=== PATIENT | female | born 1965 | race Caucasian/White ===

== ENCOUNTER 2016-06-17 14:15 | Emergency (ER) | payer MEDICAID, OTHER ==
[~2016-06-17] VITALS: Ht 167.6 cm; Wt 100.0 kg
[~2016-06-17 14:15] MED LIST: AMOX500T PO; BENZ1TAB PO; OLAN15 PO; ZYPR10TA9 PO
--- NOTE | 2016-06-17 14:37 | PD ---
HPI Chief Complaint: psychiatric symptoms Time Seen by Provider: 14:33 Travel History International Travel<30 days: No Contact w/Intl Traveler<30days: No History of Present Illness HPI 51-year-old female presents to the ED under Michele act from [facility] for psychiatric evaluation. Per the officer accompanying the patient she was involved in a dispute with a export administrator who was working at the house shared by the patient and her elderly mother. Apparently the patient continued this argument with her mother. The export administrator reports hearing a smacking sounding and entering the room to see the elderly lady crying. This prompted him to call the police. Per the patients mother she has a diagnosis of schizoaffective disorder, untreated for at least a year. On presentation the patient denies SI or HI. She declines to provide any information regarding the events that preceded her arrival to the hospital today. She denies somatic complaints on presentation. Endorses distant history of depression, denies the need for medications. 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) Allergies-Medications (Allergen,Severity, Reaction): Coded Allergies: Buspar (Verified Allergy, Severe, 04/19/14) Ultram (Verified Allergy, Unknown, 04/19/14) Haldol (Unverified Adverse Reaction, Intermediate, 04/19/14) Reported Meds & Prescriptions Reported Meds & Active Scripts Active Zyprexa Zydis (Olanzapine) 10 Mg Tab 10 Mg PO DAILY Olanzapine 15 Mg Tab 15 Mg PO HS Amoxicillin 500 Mg Cap 500 Mg PO Q12 Cogentin (Benztropine Mesylate) 2 Mg Tab 2 Mg PO HS Review of Systems Except as stated in HPI: all other systems reviewed are Neg Physical Exam Narrative GENERAL: Well-nourished, well-developed white female in no acute distress. PSYCHIATRIC: No delusional thought processes. No hallucinations. Defiant, combative SKIN: Warm and dry. HEAD: Normocephalic. EYES: No scleral icterus. No injection or drainage. NECK: Supple, trachea midline. No JVD or lymphadenopathy. CARDIOVASCULAR: Regular rate and rhythm without murmurs, gallops, or rubs. RESPIRATORY: Breath sounds equal bilaterally. No accessory muscle use. GASTROINTESTINAL: Abdomen soft, non-tender, nondistended. MUSCULOSKELETAL: No cyanosis, or edema. BACK: Nontender without obvious deformity. No CVA tenderness. Data Data Last Documented VS Vital Signs Date Time Temp Pulse Resp B/P Pulse Ox O2 Delivery O2 Flow Rate FiO2 06/17/16 15:19 98.1 108 16 131/75 96 Orders Complete Blood Count With Diff (06/17/16 14:31) Comprehensive Metabolic Panel (06/17/16 14:31) Thyroid Stimulating Hormone (06/17/16 14:31) Urinalysis - C+S If Indicated (06/17/16 14:31) Psych Screen (06/17/16 14:31) Drug Screen, Random Urine (06/17/16 14:31) Alcohol (Ethanol) (06/17/16 14:31) Labs Laboratory Tests Test 06/17/16 06/17/16 14:30 15:10 White Blood Count 11.9 TH/MM3 Red Blood Count 4.98 MIL/MM3 Hemoglobin 14.6 GM/DL Hematocrit 43.1 % Mean Corpuscular Volume 86.4 FL Mean Corpuscular Hemoglobin 29.4 PG Mean Corpuscular Hemoglobin 34.0 % Concent Red Cell Distribution Width 13.4 % Platelet Count 323 TH/MM3 Mean Platelet Volume 7.6 FL Neutrophils (%) (Auto) 78.3 % Lymphocytes (%) (Auto) 15.8 % Monocytes (%) (Auto) 5.5 % Eosinophils (%) (Auto) 0.1 % Basophils (%) (Auto) 0.3 % Neutrophils # (Auto) 9.3 TH/MM3 Lymphocytes # (Auto) 1.9 TH/MM3 Monocytes # (Auto) 0.7 TH/MM3 Eosinophils # (Auto) 0.0 TH/MM3 Basophils # (Auto) 0.0 TH/MM3 CBC Comment DIFF FINAL Differential Comment Sodium Level 142 MEQ/L Potassium Level 3.7 MEQ/L Chloride Level 108 MEQ/L Carbon Dioxide Level 23.4 MEQ/L Anion Gap 11 MEQ/L Blood Urea Nitrogen 14 MG/DL Creatinine 0.91 MG/DL Estimat Glomerular Filtration 65 ML/MIN Rate Random Glucose 112 MG/DL Calcium Level 9.6 MG/DL Total Bilirubin 0.2 MG/DL Aspartate Amino Transf 11 U/L (AST/SGOT) Alanine Aminotransferase 18 U/L (ALT/SGPT) Alkaline Phosphatase 71 U/L Total Protein 7.9 GM/DL Albumin 4.1 GM/DL Thyroid Stimulating Hormone 1.220 uIU/ML 3rd Gen Ethyl Alcohol Level LESS THAN 3 MG/DL Urine Color YELLOW Urine Turbidity CLEAR Urine pH 5.5 Urine Specific [place] 1.015 Urine Protein TRACE mg/dL Urine Glucose (UA) NEG mg/dL Urine Ketones NEG mg/dL Urine Occult Blood MOD Urine Nitrite NEG Urine Bilirubin NEG Urine Urobilinogen LESS THAN 2.0 MG/DL Urine Leukocyte Esterase MOD Urine RBC 2 /hpf Urine WBC 4 /hpf Urine Squamous Epithelial 4 /hpf Cells Urine Transitional Epithelial <1 /hpf Cells Urine Bacteria RARE /hpf Urine Hyaline Casts 9 /lpf Urine Mucus FEW /lpf Microscopic Urinalysis Comment CULT NOT INDICATED Urine Opiates Screen NEG Urine Barbiturates Screen NEG Urine Amphetamines Screen NEG Urine Benzodiazepines Screen NEG Urine Cocaine Screen NEG Urine Cannabinoids Screen NEG MDM Medical Decision Making Medical Screen Exam Complete: Yes Emergency Medical Condition: Yes Differential Diagnosis Adjustment disorder versus anxiety versus bipolar versus depression versus dementia versus electrolyte disorder versus malingering versus mood disorder versus ODD versus psychosis versus PTSD versus schizophrenia versus schizoaffective disorder versus substance-induced mood disorder versus other Narrative Course 51-year-old female presents to the ED under Michele act from [facility] for psychiatric evaluation. Per the officer accompanying the patient she was involved in a dispute with a export administrator who was working at the house shared by the patient and her elderly mother. Apparently the patient continued this argument with her mother. The export administrator reports hearing a smacking sounding and entering the room to see the elderly lady crying. This prompted him to call the police. Per the patients mother she has a diagnosis of schizoaffective disorder, untreated for at least a year. On presentation the patient denies SI or HI. She declines to provide any information regarding the events that preceded her arrival to the hospital today. She denies somatic complaints on presentation. Endorses distant history of depression, denies the need for medications. Vitals reviewed. Physical exam reveals a nontoxic-appearing, defiant, combative white female in no acute distress. Chest is clear to auscultation bilaterally. Abdomen soft, nontender. No CVA tenderness. No edema in the lower extremities. No concerning abnormalities of the CBC, CMP or UA. Tox screen and alcohol screening negative. The patient is medically clear for psychiatric evaluation. Please see psychiatric note for disposition. Diagnosis Primary Impression: Medical clearance for psychiatric admission Anna Ascencio Jun 17, 2016 14:37
[2016-06-17 14:55] LABS: AUTOMATED NEUTROPHIL # 9.3 TH/MM3 (1.8-7.7); BASOPHIL % 0.3 % (0.0-2.0); EOSINOPHIL % 0.1 % (0.0-4.0); HEMATOCRIT 43.1 % (35.0-46.0); HEMO FLAGS DIFF FINAL; LYMPH % 15.8 % (9.0-44.0); LYMPHOCYTE # 1.9 TH/MM3 (1.0-4.8); MEAN CELL VOLUME 86.4 FL (80.0-100.0); MEAN CORPUSCULAR HEMOGLOBIN 29.4 PG (27.0-34.0); MONO % 5.5 % (0.0-8.0); NEUT % 78.3 % (16.0-70.0); PLATELET COUNT 323 TH/MM3 (150-450); RED BLOOD COUNT 4.98 MIL/MM3 (4.00-5.30); RED CELL DISTRIBUTION WIDTH 13.4 % (11.6-17.2); WHITE BLOOD COUNT 11.9 TH/MM3 (4.0-11.0)
[2016-06-17 15:14] LABS: ALT (GPT) 18 U/L (10-53); ANION GAP 11 MEQ/L (5-15); AST (GOT) 11 U/L (15-37); BICARBONATE 23.4 MEQ/L (21.0-32.0); BLOOD UREA NITROGEN 14 MG/DL (7-18); CHLORIDE 108 MEQ/L (98-107); GLOMERULAR FILTRATION RATE 65 ML/MIN (>89); POTASSIUM 3.7 MEQ/L (3.5-5.1); SODIUM (NA) 142 MEQ/L (136-145)
[2016-06-17 15:19] VITALS: BP 131/75; PULSE 108; RESP 16; TEMP 98.1; O2SAT 96
[2016-06-17 15:23] LABS: BACTERIA, URINE RARE /hpf; BLOOD, URINE MOD (NEG); COMMENT (UR) CULT NOT INDICATED; CULTURE IF INDICATED CULT NOT INDICATED; GLUCOSE,URINE NEG (NEG); HYALINE CAST, URINE 9 /lpf (RARE); KETONE, URINE NEG (NEG); MUCUS URINE FEW /lpf (OCC); NITRITE,URINE NEG (NEG); PH, URINE 5.5 (5.0-8.5); SQUAMOUS EPITHELIAL CELL URINE 4 /hpf (0-5); TRANSITIONAL EPI CELLS, URINE <1 /hpf; URINE COLOR YELLOW (YELLW/STRAW)
[2016-06-17 15:24] LABS: ALKALINE PHOSPHATASE 71 U/L (45-117); TOTAL BILIRUBIN ADULT 0.2 MG/DL (0.2-1.0)
[2016-06-17 15:28] LABS: AMPHETAMINE, URINE NEG (NEG); BARBITURATES, URINE NEG (NEG); COCAINE, URINE NEG (NEG)
[2016-06-17 18:54] VITALS: BP 131/75; PULSE 96; RESP 18; TEMP 98.2; O2SAT 97
[2016-06-17 22:15] VITALS: BP 124/62; PULSE 82; RESP 18; O2SAT 98
[2016-06-18 02:00] VITALS: BP 111/65; PULSE 67; RESP 17; O2SAT 95
[2016-06-18 06:38] VITALS: BP 104/54; PULSE 70; RESP 19; O2SAT 96
--- NOTE | 2016-06-18 11:39 | PD ---
History of Present Illness Chief Complaint: Psychiatric Symptoms Time Seen by Provider: 11:35 Travel History International Travel<30 Days: No Contact w/Intl Traveler<30days: No Known affected area: No Legal Status Legal Status: Michele Act Michele Act Signed By: Juan Alberto Grace Michele Act Comment: 2016 @ 1336 History of Present Illness: History of Present Illness HPI 51-year-old female with history of schizoaffective disorder who presents to the ED under Michele act from [facility] for psychiatric evaluation. As per the officer accompanying the patient she was involved in a dispute with a block press operator who was working at the house shared by the patient and her elderly mother.The patient then began to argue with her mother and the block press operator reports hearing a smacking sounding and entering the room to see the elderly lady crying. This prompted him to call the police. She was uncooperative when the police arrived and she was placed under a BA. Patient was monitored in J pod. Although she was angry that she was here under a BA she maintained behavioral control. She slept well. EMR was reviewed. Her last contact with [facility] was in 2013 and she was under the care of Dr. Christensen. Patient this morning is awake, alert and oriented. Fair hygiene is noted. Her hair is unkempt. She maintains appropriate eye contact. Her speech is clear and logical. She answers questions but does not initiate interaction and does not elaborate on her answers. She denies any hallucinations , delusions or paranoia. She denies any suicidal or homicidal ideation as well as denying any symptom of depression. She volunteers that she has not taken medication since 2014 and that she does not need any medication at this time. " I practice healthy living". She also indicated that she does not feel she needs any medication and is unwilling to take any at this time. Telephone call to patient's mother at [phone] to obtain collateral information. Patient's mother reports that she was involved in an argument over an incident involving a block press operator. She reports that Catherine has not taken medication since April 2015. She reports that patient doesn't talk with her and laughs all the time. She did not hurt her in any way and she has never threaten her. She has no reservations in having her daughter discharged and she is aware that the patietn refuses treatment. 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, SCHIZOAFFECTIVE) Reproductive: No Respiratory: No Schizophrenia: Yes Seizures: No Tetanus Vaccination: Unknown Influenza Vaccination: No ?: Not LMP: MENOPAUSE Psychiatric History Psychiatric History Hx Psychiatric Treatment: Last psych hosp in 2013. Currently not in treatment History of Inpatient Treatment: Yes (multiple) Guns or firearms in home: No Social History Single female.Lives with her mother. Completed an NAT[employer]. Is on disability and has never been able to work. 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) Substance Use Type: Crack Other Substances Used: (family members have reported patient taking their medications)- IN PAST Hx of Substance Use Treatment: Yes Family Psychiatric History Negative Allergies-Medications (Allergen,Severity, Reaction): Coded Allergies: Buspar (Verified Allergy, Severe, 04/19/14) Ultram (Verified Allergy, Unknown, 04/19/14) Haldol (Unverified Adverse Reaction, Intermediate, 04/19/14) Reported Meds & Prescriptions Reported Meds & Active Scripts Active Zyprexa Zydis (Olanzapine) 10 Mg Tab 10 Mg PO DAILY Olanzapine 15 Mg Tab 15 Mg PO HS Amoxicillin 500 Mg Cap 500 Mg PO Q12 Cogentin (Benztropine Mesylate) 2 Mg Tab 2 Mg PO HS Review of Systems Except as stated in HPI: all other systems reviewed are Neg Exam Alert: Yes Conrad: Person (ox4) Mood: Calm Affect: Euthymic Speech: Clear, Logical Eye Contact: Normal Memory Intact: Comment (no impairment) Hallucinations: Other (deneis any) Delusions: No Suicidal: Ideation (deneis any) Homicidal: Ideation (deneis any) Insight/Judgement Poor. Not impaired MDM Medical Decision Making Medical Record Reviewed: Yes Assessment/Plan 51 year old female with history of schizoaffective disorder under a BA after an altercation with a block press operator and her mother. The block press operator contacted the police . The patient at this time is not presenting any psychosis and no keegan. There is no suicidal or homicidal ideation and no criteria to keep her under involuntary status. She is requesting discharge and she indicates that she does not want any treatment and is unwilling to consider taking any medication. Lift BA Orders Complete Blood Count With Diff (06/17/16 14:31) Comprehensive Metabolic Panel (06/17/16 14:31) Thyroid Stimulating Hormone (06/17/16 14:31) Urinalysis - C+S If Indicated (06/17/16 14:31) Psych Screen (06/17/16 14:31) Drug Screen, Random Urine (06/17/16 14:31) Alcohol (Ethanol) (06/17/16 14:31) Diet Regular Basic (06/17/16 Dinner) Diet Regular Basic (06/18/16 Breakfast) Results Vital Signs Date Time Temp Pulse Resp B/P Pulse Ox O2 Delivery O2 Flow Rate FiO2 06/18/16 06:38 70 19 104/54 96 Room Air 06/18/16 02:00 67 17 111/65 95 Room Air 06/17/16 22:15 82 18 124/62 98 Room Air 06/17/16 18:54 98.2 96 18 131/75 97 Room Air 06/17/16 15:19 98.1 108 16 131/75 96 Laboratory Tests Test 06/17/16 06/17/16 14:30 15:10 White Blood Count 11.9 Red Blood Count 4.98 Hemoglobin 14.6 Hematocrit 43.1 Mean Corpuscular Volume 86.4 Mean Corpuscular Hemoglobin 29.4 Mean Corpuscular Hemoglobin 34.0 Concent Red Cell Distribution Width 13.4 Platelet Count 323 Mean Platelet Volume 7.6 Neutrophils (%) (Auto) 78.3 Lymphocytes (%) (Auto) 15.8 Monocytes (%) (Auto) 5.5 Eosinophils (%) (Auto) 0.1 Basophils (%) (Auto) 0.3 Neutrophils # (Auto) 9.3 Lymphocytes # (Auto) 1.9 Monocytes # (Auto) 0.7 Eosinophils # (Auto) 0.0 Basophils # (Auto) 0.0 CBC Comment DIFF FINAL Differential Comment Sodium Level 142 Potassium Level 3.7 Chloride Level 108 Carbon Dioxide Level 23.4 Anion Gap 11 Blood Urea Nitrogen 14 Creatinine 0.91 Estimat Glomerular Filtration 65 Rate Random Glucose 112 Calcium Level 9.6 Total Bilirubin 0.2 Aspartate Amino Transf 11 (AST/SGOT) Alanine Aminotransferase 18 (ALT/SGPT) Alkaline Phosphatase 71 Total Protein 7.9 Albumin 4.1 Thyroid Stimulating Hormone 1.220 3rd Gen Ethyl Alcohol Level LESS THAN 3 Urine Color YELLOW Urine Turbidity CLEAR Urine pH 5.5 Urine Specific Fischer 1.015 Urine Protein TRACE Urine Glucose (UA) NEG Urine Ketones NEG Urine Occult Blood MOD Urine Nitrite NEG Urine Bilirubin NEG Urine Urobilinogen LESS THAN 2.0 Urine Leukocyte Esterase MOD Urine RBC 2 Urine WBC 4 Urine Squamous Epithelial 4 Cells Urine Transitional Epithelial <1 Cells Urine Bacteria RARE Urine Hyaline Casts 9 Urine Mucus FEW Microscopic Urinalysis Comment CULT NOT INDICATED Urine Opiates Screen NEG Urine Barbiturates Screen NEG Urine Amphetamines Screen NEG Urine Benzodiazepines Screen NEG Urine Cocaine Screen NEG Urine Cannabinoids Screen NEG Diagnosis Primary Impression: Schizoaffective disorder Psychiatrically Cleared: Yes Med/ Other Pt Specific Info: No Meds Exist/No RX given Disposition: 01 DISCHARGE HOME Condition: Stable Problem Qualifiers Primary Impression: Schizoaffective disorder Qualified Code: F25.0 - Schizoaffective disorder, bipolar type Cyndi Luu Jun 18, 2016 11:39
[2016-06-18 11:55] VITALS: BP 104/54; PULSE 70; RESP 19; O2SAT 96
== END 2016-06-18 13:08 | disposition home or self-care (01) ==
LOC: NEPC 14:15 → NEPJ 06-18 13:08
DX: F25.0 Schizoaffective disorder, bipolar type (principal); Z79.899 Other long term (current) drug therapy
CPT/HCPCS: 80053; 80307; 80320; 81001; 84443; 85025; 99283